=== PATIENT | female | born 1950 | race Caucasian/White ===

== ENCOUNTER 2023-11-02 14:29 | Inpatient (IN) | payer BC, MEDICAID ==
[~2023-11-02] VITALS: Ht 162.6 cm; Wt 85.0 kg
[2023-11-02] VITALS (7 sets, daily range): BP systolic 88–92; BP diastolic 62–68; PULSE 66–74; RESP 15–24; TEMP 97.5–97.6; O2SAT 96–100
[~2023-11-02 14:29] MED LIST: AMLO5TAB5 PO; HYDR-3965 PO; LANTUS SUBCUT; MAGN400O6 PO; OMEP40CA21 PO; SACC250C PO
[2023-11-02 14:50] LABS: ABG OXYGEN SATURATION 98.9 % (94.0-98.0); ABG PCO2 (T) 40.1 mmHg (32.0-45.0); ABG PH (T) 7.376 (7.350-7.450); ABG PO2 (T) 126.3 mmHg (83.0-108.0); ALLEN'S TEST POSITIVE; FCOHb 0.7 % (0.5-1.5); FHHb 1.1 % (0.0-5.0); FO2Hb 98.2 % (94.0-98.0); MODE MASK - BIPAP; PATIENT TEMPERATURE 36.8; TOTAL HEMOGLOBIN 11.5 G/dl (12.0-16.0)
[2023-11-02 15:10] LABS: BASOPHILS % (AUTO) 0.6 % (0-1); EOSINOPHILS % (AUTO) 0 % (0-6); HEMOGLOBIN 11.1 g/dl (12.0-16.0); LYMPHOCYTES # (AUTO) 0.5 X10'3 (1.1-4.8); LYMPHOCYTES % (AUTO) 7.1 % (21-51); MEAN CORPUSCULAR HEMOGLOBIN 27.3 PG (27.0-31.0); MEAN CORPUSCULAR HGB CONC 31.6 g/dL (33.0-36.5); MEAN CORPUSCULAR VOLUME 86.5 FL (78-98); MEAN PLATELET VOLUME 8.9 FL (7.4-10.4); MONOCYTES # (AUTO) 0.2 X10'3 (0-0.9); MONOCYTES % (AUTO) 3.1 % (2-12); NEUTROPHILS # (AUTO) 6.5 X10'3 (1.8-7.7); NEUTROPHILS % (AUTO) 89.2 % (42-75); PLATELET COUNT 235 X10'3 (140-440); RED BLOOD COUNT 4.05 X10'6 (4.20-5.60); RED CELL DISTRIBUTION WIDTH 18.6 % (11.5-14.5); WHITE BLOOD COUNT 7.3 X10'3 (4.5-11.0)
[2023-11-02 15:25] LABS: ALANINE AMINOTRANSFERASE 13 U/L (12-78); ALBUMIN 2.6 G/DL (3.4-5.0); ALBUMIN/GLOBULIN RATIO 0.5 (1.1-1.5); ALKALINE PHOSPHATASE 78 IU/L (46-116); ANION GAP 12 (8-16); ASPARTATE AMINO TRANSFERASE 32 U/L (10-37); BILIRUBIN,TOTAL 0.6 MG/DL (0.1-1.0); BLOOD UREA NITROGEN 24 MG/DL (7-18); BUN/CREATININE RATIO 28.9 (10.0-20.0); CALCIUM 9.6 MG/DL (8.5-10.1); CHLORIDE 101 MMOL/L (99-107); CREATININE 0.83 MG/DL (0.40-0.90); GLUCOSE 248 MG/DL (70-104); POTASSIUM 4.9 MMOL/L (3.5-5.1); SODIUM 139 MMOL/L (135-145); TOTAL CARBON DIOXIDE 26.1 MMOL/L (24-32); TOTAL PROTEIN 7.4 G/DL (6.4-8.2); eCRCL 51 ML/MIN; eGFR 67 ML/MIN
[2023-11-02 15:35] LABS: C-REACTIVE PROTEIN 5.24 MG/DL (0.0-0.5); PRO BRAIN NATRIURETIC PEPTIDE 20883 PG/ML (0-450)
[2023-11-02 15:38] LABS: INR 1.3 INR; PROTHROMBIN TIME 13.7 SECONDS (9.0-12.0)
[2023-11-02] MEDS: heparin 25,000 UNIT/250ml bag 250 ML IV PRN (15:40)
[2023-11-02 15:44] LABS: APTT > 139 SECONDS (22-32)
[2023-11-02 16:03] LABS: ANISOCYTOSIS 2+; PLATELET ESTIMATE NORMAL; SCHISTOCYTES FEW
[2023-11-02] MEDS: MESSAGE TO NURSING IV ONE (16:12)
[2023-11-02] MEDS ORDERED: magnesium hydroxide 30ml (MOM) UD suspension PO PRN (16:15)
[2023-11-02] MEDS ORDERED: acetaminophen 325mg tablet PO PRN (16:15)
[2023-11-02] MEDS ORDERED: mag hydrox/Alum hydrox/simeth 30ml oral suspension PO PRN (16:15)
[2023-11-02] MEDS ORDERED: potassium Cl 20 mEq SR tablet PO PRN ×2 (16:15)
[2023-11-02] MEDS ORDERED: potassium Cl 40MEQ/1/2NS 520ml 520 ML IV PRN (16:15)
[2023-11-02 16:42] LABS: PHOSPHORUS 5.4 MG/DL (2.3-4.5)
[2023-11-02 16:57] LABS: PRO BRAIN NATRIURETIC PEPTIDE 20130 PG/ML (0-450)
[2023-11-02 17:36] LABS: HEMOGLOBIN A1C 6.7 % (4.5-6.2)
[2023-11-02 17:56] LABS: BILIRUBIN,URINE NEGATIVE (Neg); CLARITY,URINE SLIGHTLY CLOUDY (Clear); COLOR,URINE YELLOW (Yellow); GLUCOSE, URINE NEGATIVE (Neg); KETONES,URINE NEGATIVE (Neg); LEUKOCYTE ESTERASE ,URINE MODERATE (Neg); NITRITES, URINE NEGATIVE (Neg); OCCULT BLOOD,URINE TRACE-INTACT (Neg); PROTEIN,URINE NEGATIVE (Neg); UROBILINOGEN,URINE 0.2 E.U/dL (0.2-1.0)
[2023-11-02 18:01] LABS: UA COLLECTION TYPE FOLEY CATH
[2023-11-02 18:03] LABS: BACTERIA,URINE 4+ /HPF (Neg); SQUAMOUS EPITHELIAL CELL,UR MANY /LPF (FEW); WBC,URINE TNTC /HPF (0-4)
[2023-11-02] MEDS ORDERED: LINA290C PO (18:19)
[2023-11-02] MEDS ORDERED: APIX5TAB3 PO (18:19)
[2023-11-02] MEDS ORDERED: METO-395 PO (18:19)
[2023-11-02] MEDS ORDERED: NALO12.52 PO (18:19)
[2023-11-02] MEDS ORDERED: HUM10VIA (18:19)
[2023-11-02] MEDS ORDERED: LISI5TAB22 PO (18:19)
[2023-11-02] MEDS ORDERED: SERT-153 PO (18:19)
[2023-11-02] MEDS ORDERED: DEXTROSE 15 GM of carb/4 tabs (each vial/BOTTLE has 4 tablets) PO PRN ×2 (18:40)
[2023-11-02] MEDS ORDERED: glucagon, human recombinant 1mg kit SUBCUT PRN (18:40)
[2023-11-02] MEDS ORDERED: dextrose 50%-water 50ml dispensing syringe IV PRN ×2 (18:40)
[2023-11-02] MEDS: carVEDilol 3.125mg tablet PO SCH (20:00)
[2023-11-02] MEDS: SACCHAROMYCES BOULARDII PO SCH (20:00)
[2023-11-02] MEDS: K and/or MAG REPLACEMENT MC SCH (20:00)
[2023-11-02] MEDS: docusate sod 100mg capsule PO SCH (20:00)
[2023-11-02] MEDS: INSULIN LISPRO 100 UNIT/ML INSULN.PEN MULTI-DOSE SQ SCH (21:00)
[2023-11-02 21:05] LABS: APTT 36 SECONDS (22-32)
[2023-11-02] MEDS: heparin 10,000 units/1 ML INJ IV PRN (22:55)
[2023-11-02] MEDS: CefTRIAXone/D5W-Rocephin 1gm 50 ML IV SCH (23:05)
[2023-11-03] VITALS (11 sets, daily range): BP systolic 87–127; BP diastolic 38–77; PULSE 56–85; RESP 18–21; TEMP 96.5–98.7; O2SAT 90–100
[2023-11-03 05:01] LABS: BASOPHILS % (AUTO) 0.7 % (0-1); EOSINOPHILS # (AUTO) 0.1 X10'3 (0-0.9); EOSINOPHILS % (AUTO) 0.8 % (0-6); HEMATOCRIT 32.4 % (35.0-45.0); LYMPHOCYTES # (AUTO) 1.5 X10'3 (1.1-4.8); LYMPHOCYTES % (AUTO) 20.9 % (21-51); MEAN CORPUSCULAR HEMOGLOBIN 26.8 PG (27.0-31.0); MEAN CORPUSCULAR VOLUME 86.5 FL (78-98); MEAN PLATELET VOLUME 8.6 FL (7.4-10.4); MONOCYTES # (AUTO) 0.7 X10'3 (0-0.9); MONOCYTES % (AUTO) 10.1 % (2-12); NEUTROPHILS # (AUTO) 4.9 X10'3 (1.8-7.7); NEUTROPHILS % (AUTO) 67.5 % (42-75); PLATELET COUNT 212 X10'3 (140-440); RED BLOOD COUNT 3.75 X10'6 (4.20-5.60); RED CELL DISTRIBUTION WIDTH 18.5 % (11.5-14.5); WHITE BLOOD COUNT 7.3 X10'3 (4.5-11.0)
[2023-11-03 05:12] LABS: INR 1.2 INR; PROTHROMBIN TIME 12.4 SECONDS (9.0-12.0)
[2023-11-03 05:15] LABS: ALANINE AMINOTRANSFERASE 8 U/L (12-78); ALBUMIN 2.3 G/DL (3.4-5.0); ALBUMIN/GLOBULIN RATIO 0.6 (1.1-1.5); ALKALINE PHOSPHATASE 65 IU/L (46-116); ANION GAP 7 (8-16); ASPARTATE AMINO TRANSFERASE 42 U/L (10-37); BILIRUBIN,TOTAL 0.4 MG/DL (0.1-1.0); BLOOD UREA NITROGEN 27 MG/DL (7-18); BUN/CREATININE RATIO 37.5 (10.0-20.0); CALCIUM 9.3 MG/DL (8.5-10.1); CHLORIDE 104 MMOL/L (99-107); CHOL/HDL RATIO 3.4 (0.00-4.99); CHOLESTEROL 100 MG/DL (0-200); CREATININE 0.72 MG/DL (0.40-0.90); GLUCOSE 118 MG/DL (70-104); HDL CHOLESTEROL 29 MG/DL (35-60); LDL CHOLESTEROL 56 MG/DL (50-100); MAGNESIUM 1.7 MG/DL (1.5-2.4); POTASSIUM 4.3 MMOL/L (3.5-5.1); SODIUM 141 MMOL/L (135-145); TOTAL CARBON DIOXIDE 30.3 MMOL/L (24-32); TOTAL PROTEIN 6.4 G/DL (6.4-8.2); TRIGLYCERIDES 89 MG/DL (20-135); eCRCL 58 ML/MIN; eGFR 79 ML/MIN
[2023-11-03] MEDS: clopidogrel 75mg tablet PO SCH (07:37)
[2023-11-03] MEDS: lisinopril 5mg tablet PO SCH (07:38)
[2023-11-03] MEDS: aspirin 81mg tab.chew PO SCH (07:38)
[2023-11-03] MEDS: sertraline 50mg tablet PO SCH (07:38)
[2023-11-03] MEDS: pantoprazole 40mg Tablet.DR PO SCH (07:38)
[2023-11-03] MEDS: furosemide 10 MG/1 ML 10ml inj IV SCH (07:39)
[2023-11-03] MEDS: atorvastatin 20mg tablet PO SCH (07:39)
[2023-11-03] MEDS ORDERED: atorvastatin 20mg tablet PO SCH (08:00)
[2023-11-03] MEDS: non-formulary drug (Naloxegol Oxalate (Movantik) 1 TAB) PO SCH (08:00)
[2023-11-03] MEDS: MESSAGE TO NURSING IV ONE (17:55)
[2023-11-04] VITALS (9 sets, daily range): BP systolic 97–155; BP diastolic 29–78; PULSE 6–67; RESP 14–63; TEMP 96.9–99.5; O2SAT 20–99
[2023-11-04] MEDS: HYDROcodone/acetaminophen 5mg/325mg tablet PO PRN (00:39)
[2023-11-04] MEDS: LidoCAINE 2% Topical Jelly 11mL syringe (UROJET) TOP ONE (04:40)
[2023-11-04 06:07] LABS: BASOPHILS # (AUTO) 0.1 X10'3 (0-0.2); BASOPHILS % (AUTO) 1.2 % (0-1); EOSINOPHILS # (AUTO) 0.1 X10'3 (0-0.9); EOSINOPHILS % (AUTO) 1.9 % (0-6); HEMATOCRIT 28.8 % (35.0-45.0); HEMOGLOBIN 9.1 g/dl (12.0-16.0); LYMPHOCYTES # (AUTO) 1.6 X10'3 (1.1-4.8); MEAN CORPUSCULAR HEMOGLOBIN 27.1 PG (27.0-31.0); MEAN CORPUSCULAR HGB CONC 31.6 g/dL (33.0-36.5); MEAN CORPUSCULAR VOLUME 85.8 FL (78-98); MONOCYTES # (AUTO) 0.5 X10'3 (0-0.9); MONOCYTES % (AUTO) 7.5 % (2-12); NEUTROPHILS # (AUTO) 4.1 X10'3 (1.8-7.7); NEUTROPHILS % (AUTO) 64.4 % (42-75); PLATELET COUNT 197 X10'3 (140-440); RED BLOOD COUNT 3.35 X10'6 (4.20-5.60); RED CELL DISTRIBUTION WIDTH 18.1 % (11.5-14.5); WHITE BLOOD COUNT 6.3 X10'3 (4.5-11.0)
[2023-11-04 06:12] LABS: APTT 44 SECONDS (22-32); INR 1.2 INR; PROTHROMBIN TIME 12.7 SECONDS (9.0-12.0)
[2023-11-04 06:16] LABS: ALANINE AMINOTRANSFERASE 12 U/L (12-78); ALBUMIN 2.3 G/DL (3.4-5.0); ALBUMIN/GLOBULIN RATIO 0.6 (1.1-1.5); ALKALINE PHOSPHATASE 61 IU/L (46-116); ANION GAP 4 (8-16); ASPARTATE AMINO TRANSFERASE 26 U/L (10-37); BILIRUBIN,TOTAL 0.5 MG/DL (0.1-1.0); BLOOD UREA NITROGEN 25 MG/DL (7-18); BUN/CREATININE RATIO 36.8 (10.0-20.0); CALCIUM 9.2 MG/DL (8.5-10.1); CHLORIDE 101 MMOL/L (99-107); CREATININE 0.68 MG/DL (0.40-0.90); GLUCOSE 130 MG/DL (70-104); MAGNESIUM 1.3 MG/DL (1.5-2.4); POTASSIUM 3.8 MMOL/L (3.5-5.1); SODIUM 139 MMOL/L (135-145); TOTAL CARBON DIOXIDE 34.5 MMOL/L (24-32); TOTAL PROTEIN 6.2 G/DL (6.4-8.2); eCRCL 62 ML/MIN; eGFR 84 ML/MIN
[2023-11-04] MEDS: MESSAGE TO NURSING IV ONE (06:45)
[2023-11-04] MEDS: magnesium Cl slow-release 64mg tablet PO PRN (09:05)
[2023-11-04] MEDS: EMPAGLIFLOZIN 10 MG TABLET PO SCH (09:06)
[2023-11-04] MEDS: spironolactone 25 MG tablet PO SCH (09:08)
[2023-11-04] MEDS: enoxaparin 30mg/0.3ml syringe SUBCUT SCH (21:48)
[2023-11-04] MEDS: magnesium sulf-water 4G/100mL 100 ML IV PRN (23:13)
[2023-11-05] MEDS: magnesium sulf-water 2g/50mL 50 ML IV PRN (03:22)
[2023-11-05 06:00] VITALS: BP 128/41; PULSE 60; RESP 21; TEMP 98.2; O2SAT 91
[2023-11-05 07:21] LABS: BASOPHILS # (AUTO) 0.1 X10'3 (0-0.2); EOSINOPHILS # (AUTO) 0.1 X10'3 (0-0.9); HEMATOCRIT 30.7 % (35.0-45.0); HEMOGLOBIN 9.5 g/dl (12.0-16.0); LYMPHOCYTES # (AUTO) 1.8 X10'3 (1.1-4.8); LYMPHOCYTES % (AUTO) 26.9 % (21-51); MEAN CORPUSCULAR HEMOGLOBIN 26.5 PG (27.0-31.0); MEAN CORPUSCULAR HGB CONC 30.9 g/dL (33.0-36.5); MEAN CORPUSCULAR VOLUME 85.7 FL (78-98); MEAN PLATELET VOLUME 9.2 FL (7.4-10.4); MONOCYTES # (AUTO) 0.6 X10'3 (0-0.9); MONOCYTES % (AUTO) 8.4 % (2-12); NEUTROPHILS # (AUTO) 4.1 X10'3 (1.8-7.7); NEUTROPHILS % (AUTO) 61.7 % (42-75); PLATELET COUNT 215 X10'3 (140-440); RED BLOOD COUNT 3.58 X10'6 (4.20-5.60); RED CELL DISTRIBUTION WIDTH 18.7 % (11.5-14.5); WHITE BLOOD COUNT 6.7 X10'3 (4.5-11.0)
[2023-11-05 07:33] LABS: ALANINE AMINOTRANSFERASE 11 U/L (12-78); ALBUMIN 2.3 G/DL (3.4-5.0); ALBUMIN/GLOBULIN RATIO 0.6 (1.1-1.5); ALKALINE PHOSPHATASE 59 IU/L (46-116); ANION GAP 9 (8-16); ASPARTATE AMINO TRANSFERASE 20 U/L (10-37); BILIRUBIN,TOTAL 0.4 MG/DL (0.1-1.0); BLOOD UREA NITROGEN 28 MG/DL (7-18); BUN/CREATININE RATIO 31.8 (10.0-20.0); CALCIUM 9.1 MG/DL (8.5-10.1); CHLORIDE 96 MMOL/L (99-107); CREATININE 0.88 MG/DL (0.40-0.90); GLUCOSE 115 MG/DL (70-104); MAGNESIUM 3.3 MG/DL (1.5-2.4); POTASSIUM 3.6 MMOL/L (3.5-5.1); SODIUM 135 MMOL/L (135-145); TOTAL CARBON DIOXIDE 30.4 MMOL/L (24-32); TOTAL PROTEIN 6.3 G/DL (6.4-8.2); eCRCL 48 ML/MIN; eGFR 63 ML/MIN
[2023-11-05 07:34] LABS: APTT 28 SECONDS (22-32); INR 1.1 INR; PROTHROMBIN TIME 11.8 SECONDS (9.0-12.0)
[2023-11-05 08:00] VITALS: BP_SYST 114; BP_SYST 128; BP_DIAS 41; BP_DIAS 56; PULSE 60; PULSE 67; RESP 21; O2SAT 91
[2023-11-05] MEDS: piperacillin/tazo 3.375gm/50ml 50 ML IV SCH (10:20)
[2023-11-05] MEDS: diphenhydrAMINE 50 mg/ml inj IM ONE (10:29)
[2023-11-05 11:00] VITALS: BP 101/40; PULSE 56; RESP 12; TEMP 97.7; O2SAT 93
[2023-11-05 13:57] VITALS: PULSE 63; RESP 20; O2SAT 90
[2023-11-05 15:00] VITALS: BP 121/45; PULSE 52; RESP 15; TEMP 97.3; O2SAT 97
[2023-11-05 18:00] VITALS: BP 102/42; PULSE 48; RESP 14; TEMP 97.1; O2SAT 93
[2023-11-05] MEDS: apixaban 5mg tablet PO SCH (19:48)
[2023-11-06] VITALS (11 sets, daily range): BP systolic 112–118; BP diastolic 38–57; PULSE 52–60; RESP 14–22; TEMP 96.8–98.6; O2SAT 90–98
[2023-11-06 07:13] LABS: BASOPHILS # (AUTO) 0.1 X10'3 (0-0.2); BASOPHILS % (AUTO) 0.8 % (0-1); EOSINOPHILS # (AUTO) 0.1 X10'3 (0-0.9); HEMATOCRIT 31.2 % (35.0-45.0); LYMPHOCYTES # (AUTO) 1.4 X10'3 (1.1-4.8); LYMPHOCYTES % (AUTO) 20.6 % (21-51); MEAN CORPUSCULAR HEMOGLOBIN 27.1 PG (27.0-31.0); MEAN CORPUSCULAR HGB CONC 32.1 g/dL (33.0-36.5); MEAN CORPUSCULAR VOLUME 84.5 FL (78-98); MEAN PLATELET VOLUME 8.9 FL (7.4-10.4); MONOCYTES # (AUTO) 0.6 X10'3 (0-0.9); MONOCYTES % (AUTO) 8.7 % (2-12); NEUTROPHILS # (AUTO) 4.7 X10'3 (1.8-7.7); NEUTROPHILS % (AUTO) 67.9 % (42-75); PLATELET COUNT 217 X10'3 (140-440); RED BLOOD COUNT 3.69 X10'6 (4.20-5.60); RED CELL DISTRIBUTION WIDTH 18.5 % (11.5-14.5); WHITE BLOOD COUNT 6.9 X10'3 (4.5-11.0)
[2023-11-06 07:21] LABS: INR 1.2 INR; PROTHROMBIN TIME 12.8 SECONDS (9.0-12.0)
[2023-11-06 07:28] LABS: ALANINE AMINOTRANSFERASE 13 U/L (12-78); ALBUMIN 2.4 G/DL (3.4-5.0); ALBUMIN/GLOBULIN RATIO 0.6 (1.1-1.5); ALKALINE PHOSPHATASE 62 IU/L (46-116); ANION GAP 12 (8-16); ASPARTATE AMINO TRANSFERASE 20 U/L (10-37); BILIRUBIN,TOTAL 0.5 MG/DL (0.1-1.0); BLOOD UREA NITROGEN 25 MG/DL (7-18); BUN/CREATININE RATIO 30.1 (10.0-20.0); CALCIUM 8.9 MG/DL (8.5-10.1); CHLORIDE 96 MMOL/L (99-107); CREATININE 0.83 MG/DL (0.40-0.90); GLUCOSE 91 MG/DL (70-104); POTASSIUM 3.4 MMOL/L (3.5-5.1); SODIUM 139 MMOL/L (135-145); TOTAL CARBON DIOXIDE 31.4 MMOL/L (24-32); TOTAL PROTEIN 6.5 G/DL (6.4-8.2); eCRCL 51 ML/MIN; eGFR 67 ML/MIN
[2023-11-06] MEDS: metoprolol succinate 25mg (24-HOUR) SR. Tablet PO SCH (08:00)
[2023-11-06] MEDS ORDERED: magnesium sulf-water 4G/100mL 100 ML IV PRN (08:30)
[2023-11-06] MEDS ORDERED: magnesium sulf-water 2g/50mL 50 ML IV PRN (08:30)
[2023-11-06] MEDS ORDERED: potassium Cl 40MEQ/1/2NS 520ml 520 ML IV PRN (08:30)
[2023-11-06] MEDS ORDERED: magnesium Cl slow-release 64mg tablet PO PRN (08:30)
[2023-11-06] MEDS: potassium Cl 20 mEq SR tablet PO PRN (08:45)
[2023-11-06] MEDS ORDERED: bisacodyl 10mg suppository rectal RC PRN (10:40)
[2023-11-07] MEDS: morphine 2 MG/ML inj. syringe IV ONE (00:43)
[2023-11-07 02:00] VITALS: BP 115/77; PULSE 79; RESP 15; TEMP 97.6; O2SAT 92
[2023-11-07 06:00] VITALS: BP 111/53; PULSE 62; RESP 20; TEMP 97.9; O2SAT 93
[2023-11-07 06:01] LABS: BASOPHILS % (AUTO) 0.5 % (0-1); EOSINOPHILS # (AUTO) 0.2 X10'3 (0-0.9); EOSINOPHILS % (AUTO) 2.4 % (0-6); HEMATOCRIT 34.7 % (35.0-45.0); LYMPHOCYTES # (AUTO) 1.6 X10'3 (1.1-4.8); MEAN CORPUSCULAR HEMOGLOBIN 27.1 PG (27.0-31.0); MEAN CORPUSCULAR HGB CONC 31.7 g/dL (33.0-36.5); MEAN CORPUSCULAR VOLUME 85.3 FL (78-98); MEAN PLATELET VOLUME 9.1 FL (7.4-10.4); MONOCYTES # (AUTO) 0.7 X10'3 (0-0.9); MONOCYTES % (AUTO) 9.6 % (2-12); NEUTROPHILS # (AUTO) 4.5 X10'3 (1.8-7.7); NEUTROPHILS % (AUTO) 64.5 % (42-75); PLATELET COUNT 202 X10'3 (140-440); RED BLOOD COUNT 4.07 X10'6 (4.20-5.60); RED CELL DISTRIBUTION WIDTH 18.7 % (11.5-14.5)
[2023-11-07 06:08] LABS: INR 1.3 INR; PROTHROMBIN TIME 13.4 SECONDS (9.0-12.0)
[2023-11-07 06:23] LABS: ALANINE AMINOTRANSFERASE 11 U/L (12-78); ALBUMIN 2.5 G/DL (3.4-5.0); ALBUMIN/GLOBULIN RATIO 0.6 (1.1-1.5); ALKALINE PHOSPHATASE 62 IU/L (46-116); ANION GAP 10 (8-16); ASPARTATE AMINO TRANSFERASE 18 U/L (10-37); BILIRUBIN,TOTAL 0.5 MG/DL (0.1-1.0); BLOOD UREA NITROGEN 18 MG/DL (7-18); BUN/CREATININE RATIO 22.8 (10.0-20.0); CALCIUM 8.8 MG/DL (8.5-10.1); CHLORIDE 96 MMOL/L (99-107); CREATININE 0.79 MG/DL (0.40-0.90); GLUCOSE 92 MG/DL (70-104); POTASSIUM 3.4 MMOL/L (3.5-5.1); SODIUM 140 MMOL/L (135-145); TOTAL CARBON DIOXIDE 33.8 MMOL/L (24-32); TOTAL PROTEIN 6.8 G/DL (6.4-8.2); eCRCL 53 ML/MIN; eGFR 71 ML/MIN
[2023-11-07 08:00] VITALS: RESP 19; O2SAT 93
[2023-11-07] MEDS: magnesium hydroxide 30ml (MOM) UD suspension PO ONE (12:06)
[2023-11-07] MEDS: bisacodyl 10mg suppository rectal RC STA ×2 (12:06→12:07)
[2023-11-07] MEDS: ondansetron/PF 4mg/2ml inj IV PRN (17:22)
[2023-11-07] MEDS: potassium Cl 20 mEq SR tablet PO PRN (17:59)
[2023-11-07 18:00] VITALS: BP 104/41; PULSE 62; RESP 14; TEMP 97.4; O2SAT 95
[2023-11-07 19:50] VITALS: BP 120/48; PULSE 75; RESP 20; O2SAT 95
[2023-11-07 20:00] VITALS: RESP 14; O2SAT 95
[2023-11-07] MEDS: bisacodyl 5mg tablet.DR PO PRN (20:13)
[2023-11-08] VITALS: BP 101/50; PULSE 65; RESP 16; TEMP 97.5; O2SAT 95
[2023-11-08 06:00] VITALS: BP 95/41; PULSE 55; RESP 10; TEMP 97; O2SAT 93
[2023-11-08 08:00] VITALS: RESP 14; O2SAT 95
[2023-11-08 11:00] VITALS: BP 106/54; PULSE 53; RESP 14; TEMP 97.9; O2SAT 96
== END 2023-11-08 12:10 | disposition swing bed (61) | DRG 280 ==
LOC: ER 14:29 → ED HOLD 16:29 → PCU 3S 20:35
PROVIDERS: ADMIT Internal Medicine; ATTEND Internal Medicine
PROC: 5A09357 Assistance with Respiratory Ventilation, Less than 24 Consecutive Hours, Continuous Positive Airway Pressure (ICD-10-PCS; principal; 2023-11-02)
DX: I21.4 Non-ST elevation (NSTEMI) myocardial infarction (principal); I50.23 Acute on chronic systolic (congestive) heart failure; J96.01 Acute respiratory failure with hypoxia; E87.29 Other acidosis; N39.0 Urinary tract infection, site not specified; I11.0 Hypertensive heart disease with heart failure; E11.9 Type 2 diabetes mellitus without complications; E83.42 Hypomagnesemia; Z66 Do not resuscitate; F31.9 Bipolar disorder, unspecified; E87.5 Hyperkalemia; E66.9 Obesity, unspecified; Z88.0 Allergy status to penicillin; Z88.5 Allergy status to narcotic agent; Z79.4 Long term (current) use of insulin; Z79.899 Other long term (current) drug therapy; Z68.32 Body mass index [BMI] 32.0-32.9, adult
CPT/HCPCS: 36415; 36600; 71045; 80053; 80061; 81001; 82803; 82948; 83036; 83735; 83880; 84100; 84484; 85008; 85018; 85025; 85610; 85730; 86140; 87077; 87081; 87088; 87186; 93005; 93306; 94660; 94760; 96365; 97110; 97161; 99291; A4314; A4615; A6213; A6250; A6449; G0378; J0696; J1200; J1644; J1650; J1815; J1940; J2270; J2405; J2543; J3475; J7040